=== PATIENT | female | born 1945 | race Caucasian/White ===

== ENCOUNTER → 2016-12-12 | Outpatient (CLI) | payer MEDICARE | END | disposition home or self-care (01) | LOC: LABPAT 10:55 | PROVIDERS: ATTEND Orthopaedic Surgery | DX: Z01.818 Encounter for other preprocedural examination (principal); A49.02 Methicillin resistant Staphylococcus aureus infection, unspecified site | CPT/HCPCS: 87070 ==

== ENCOUNTER 2017-01-17 06:29 | Inpatient (IN) | payer MEDICARE ==
[2017-01-10 13:34] VITALS: BMI 30.5
--- NOTE | 2017-01-16 11:34 | HP ---
DATE OF ADMISSION: CHIEF COMPLAINT: Left knee pain. HISTORY OF PRESENT ILLNESS: The patient is a 71-year-old retired female who presents with progressive left knee pain secondary to osteoarthrosis despite extensive conservative measures. She has tried previous medications and injections with only partial temporary relief. She notes she is significantly limited because of pain. PAST MEDICAL HISTORY: Significant for arthritis, hypertension, hypercholesterolemia. PAST SURGICAL HISTORY: Significant for bilateral total hip arthroplasty, breast reduction, cholecystectomy and tonsillectomy. CURRENT MEDICATIONS: 1. Ibuprofen. 2. Lipitor. 3. Lotrel. She notes allergies to SULFA. FAMILY HISTORY: Significant for heart disease, stroke and cancer. SOCIAL HISTORY: Significant for social alcohol use. A 16-point review of systems otherwise reviewed and is noncontributory. On examination, the patient is approximately 5 foot 4, 180 pounds of endomorphic habitus. HEENT exam is nonfocal. Neck is supple. She has painless passive motion of her left hip. Straight leg raise is negative. Active motion left knee -10 to 120 degrees of flexion. She has a mild effusion. She is tender about the medial joint line. Collaterals are stable, Jose is negative, Audrey's is equivocal. She has genu varum alignment. Her distal neurovascular exam appears be intact in the left lower extremity. Weight-bearing, notch, lateral, and merchant views of the left knee obtained in the office show severe medial compartment narrowing. IMPRESSION: 1. Left knee severe medial compartment osteoarthrosis. 2. Increased body mass index. RECOMMENDATION: I talked to the patient at length regarding her treatment options. At this point, she is quite symptomatic because of pain related to her osteoarthrosis. After thorough discussion, she opts to proceed with surgery. We will plan to proceed with left total knee arthroplasty. Risks and benefits are discussed at length in layman's terms. We will institute DVT prophylaxis postoperatively. Patient underwent preoperative medical evaluation by Dr. Gooden.
[~2017-01-17 06:29] MED LIST: ACETAMINOPHEN TAB 500 MG TAB PO ONE; DEXAMETHASONE SOD PHOSPHATE 10 MG/ML 1 ML VIAL IV ONE; MELOXICAM 7.5 MG TAB PO ONE; MIDAZOLAM 2 MG/2 ML VIAL IV PRN; ONDANSETRON 4 MG/2 ML VIAL IVP ONE; TRANEXAMIC ACID 1,000 MG in SODIUM CHLORIDE 0.9% 100 ML IVPB ONE; ceFAZolin 2 GM in SODIUM CHLORIDE 0.9% 100 ML IVPB ONE
[2017-01-17] MEDS: LACTATED RINGERS 1,000 ML IV SCH ×2 (07:11→20:18)
[2017-01-17] MEDS ORDERED: LIDOCAINE 1% 20 ML VIAL (10MG/ML) FOR IV START INTRADERMA ONE (07:12)
[2017-01-17] MEDS ORDERED: MIDAZOLAM 2 MG/2 ML VIAL ONE (08:10)
[2017-01-17] MEDS ORDERED: fentaNYL (PF) 50 MCG/ML 2 ML AMP ONE (08:10)
[2017-01-17] MEDS ORDERED: PROPOFOL 10 MG/ML 20 ML VIAL IV ONE (08:10)
[2017-01-17] MEDS ORDERED: LIDOCAINE 1% INJ 10MG/ML (20 ML MDV) ONE (08:10)
[2017-01-17] MEDS ORDERED: TRANEXAMIC ACID 1,000 MG/10 ML VIAL ONE (08:10)
[2017-01-17] MEDS ORDERED: SODIUM CHLORIDE 0.9% 100 ML BAG ONE (08:10)
[2017-01-17] MEDS ORDERED: ROPIVACAINE 246.25 MG, EPINEPHrine 0.5 MG, KETOROLAC 30 MG, cloNIDine HCL/PF 80 MCG, WA... MISCELLANE ONE ×5 (08:49)
[2017-01-17] MEDS ORDERED: ROPIVACAINE 1,100 MG, SODIUM CHLORIDE 0.9% 330 ML MISCELLANE PRN ×2 (10:03)
--- NOTE | 2017-01-17 10:04 | P.ONQ ---
Anesthesiology Proc Note - PNB - Peripheral Nerve Block Performed Left Adductor Canal Infusion Time Out Performed: Yes Procedure Start Time: 07:41 Procedure Stop Time: 07:53 Indication: Acute Post-Operative Pain, Requested by physician Sedation Type: Awake Preparation: Sterile Dressing Position: Supine Needle Types: On-Q Needle Size: 100mm (4") Needle Gauge: 21 Technique: Ultrasound Injectate: 0.5% Ropivacaine (see comment for volume) (ropi .5% 25cc) Pain Paresthesia on Injection Noted: No Resistance on Injection: Normal Events: Uneventful and Well Tolerated
[2017-01-17] MEDS ORDERED: ROPIVACAINE 5 MG/ML 30 ML VIAL MISCELLANE ONE (10:31)
--- NOTE | 2017-01-17 10:32 | P.OP ---
Date of Procedure: 01/17/17 Preoperative Diagnosis: Left knee severe tricompartmental osteoarthrosis Postoperative Diagnosis: Same Procedure(s) Performed: Left total knee odfnpqfipqau-juykfueq-boqwngkr retaining Implants: Depuy Attune size 5 cemented femoral component, size 4 cemented tibial component , 9 mm articular surface, 35 mm cemented patellar component. This is a cruciate retaining implant. Anesthesia: regional, local, spinal Surgeon: Tereso Burris Estimated Blood Loss (ml): 50 Pathology: other (Bone fragments) Condition: stable Disposition: PACU Indications for Procedure: The patient is a 71-year-old female who presents with progressive left knee pain secondary to osteoarthrosis despite conservative measures. A discussion of the risks and benefits of operative intervention versus continued conservative measures was made with patient. She opted to proceed with surgery. Operative risks to include infection, neurovascular injury, development of blood clots, possible component loosening, possible component failure and need for subsequent procedures was discussed. Informed consent was obtained. Operative Findings: As below Description of Procedure: The patient was brought to the operating room, and after induction of spinal anesthesia the left lower extremity was prepped and draped in a normal fashion. The limb was elevated to facilitate exsanguination. The tourniquet was inflated to 270 mmHg. A longitudinal incision extending 3 finger breaths above the superior pole of patella extending to the medial aspect the tibial tubercle was then made. The skin and subcutaneous tissues were divided sharply. Electrocautery was used for hemostasis. A medial parapatellar arthrotomy was performed. The medial soft tissues to include the superficial and deep portions of the medial collateral ligament as well as the medial hamstring tendons were elevated subperiosteally. The patella was everted and the knee flexed. The anterior cruciate ligament was sacrificed. A portion of the retropatellar fat pad was excised sharply. Blunt retractors were placed. A starting hole was made in the distal femur 1 cm anterior to the posterior cruciate ligament origin. An intramedullary guide was gently inserted planning on 5 valgus distal cut with 9 mm distal resection. The cutting block was pinned in place. The distal cut was made. The posterior referencing sizing guide was utilized. 3 of external rotation was built into the system and verified off the trans-epicondylar axis and the posterior condyles. The femur sized most appropriate size 5. The cutting block was pinned in place. The anterior, posterior, and chamfer cuts were then made. The bone fragments were removed. The slot guide was placed in the slot cut was made with the reciprocating saw. The trial size 5 femoral component was placed and was fully seated. There is good anterior to posterior medial to lateral fit. The distal peg holes were drilled. The trial component was then removed. Attention was then paid towards preparing the proximal tibia. An extra medullary guide was utilized in line with the tibial shaft and second metatarsal distally. I planned on 7 posterior slope. I planned on 2 mm resection from the medial compartment. The cutting block was pinned in place. The posterior cruciate ligament was protected with a retractor. The proximal tibial cut was made in the bone removed in one fragment. The flexion and extension gaps were checked and felt to be tight therefore an additional 2 mm was resected with the cutting block. The remnants of the medial and lateral menisci were excised the capsule junction with electrocautery. The trial femoral and size 4 tibial component were placed along with a 9 mm articular surface. The knee was put in full extension and flexion and had good stability with varus and valgus stress. After several flexion and extension cycles, the tibial rotation was marked with electrocautery in line with the medial one third of the tibial tubercle. Attention was then paid towards preparing the patella. A patella reamer was utilized taking that 14 mm of bone stock. A good flush cut was made. The patella sized most appropriately 35 mm per the peg holes were drilled. The trial components placed. The knee was taken through range of motion. I had good patellofemoral tracking with no hands technique. The trial components were then removed. The tibia was prepared in the appropriate rotation with appropriate drill and keel punch. The posterior osteophytes of the distal femur were carefully removed with curved osteotome. The flexion and extension gaps were checked and felt to be symmetric. The posterior soft tissues were injected with ropivacaine. The bony surfaces were prepared with pulsatile lavage and dried. The tibial component was then cemented in placed and was fully seated. Excess cement was removed. The femoral component was cemented in placed and was fully seated. Excess cement was removed. The trial 9 mm articular surface was placed. The patella component cemented in placed and was fully seated. After the cement had sufficiently hardened, the knee was again taken through range of motion. I was able to obtain full flexion and extension with good stability with varus and valgus stress. The trial component was then removed. The final 9 mm articular surface was placed. This was fully seated. Care taken to avoid any soft tissue interposition. Pulsatile lavage was again utilized. The medial parapatellar arthrotomy was closed with #2 Ethibond suture. A deep drain was placed exiting laterally. The tourniquet was deflated with approximately 70 minutes total tourniquet time. The subcu tissues were reapproximated interrupted 2-0 Vicryl sutures. The skin was reapproximated with 3-0 subcuticular strata fix suture. Dermabond was placed. A sterile dressing was applied. The patient was then awoken from sedation and transferred to the recovery room in good condition. Blood loss was estimated 50 mL. No complications were incurred. Sponge and needle counts were correct at the end the case.
[2017-01-17] MEDS ORDERED: ONDANSETRON 4 MG/2 ML VIAL IVP PRN (10:33)
[2017-01-17] MEDS ORDERED: NALOXONE 0.4 MG/ML 1 ML VIAL IV PRN (10:33)
[2017-01-17] MEDS ORDERED: HYDROcodone/APAP 5-325MG 1 EACH TAB PO PRN (10:33)
--- NOTE | 2017-01-17 10:58 | XR ---
EXAMINATION TYPE: XR knee limited LT DATE OF EXAM: 01/17/2017 10:49 AM COMPARISON: NONE HISTORY: Postop evaluation TECHNIQUE: 2 view left knee FINDINGS: Left knee prosthesis has been placed. No acute fractures evident. Drainage catheter is pres ent. Surgical changes are evident. IMPRESSION: 1. No acute fractures post knee replacement.
[2017-01-17] MEDS: HYDROmorphone 1 MG/ML 1 ML SYRINGE IVP PRN ×4 (11:09→12:03)
[2017-01-17] MEDS ORDERED: LACTATED RINGERS 1,000 ML IV ONE (11:24)
[2017-01-17] MEDS ORDERED: cloNIDine HCL 0.1 MG TAB PO PRN (15:55)
[2017-01-17] MEDS: ceFAZolin 2 GM in SODIUM CHLORIDE 0.9% 100 ML IVPB SCH (16:36)
[2017-01-17] MEDS: amLODIPine 10 MG TAB PO SCH (16:36)
--- NOTE | 2017-01-17 18:29 | CONS ---
DATE OF CONSULTATION: 01/17/2017 REASON FOR CONSULTATION: Advice regarding hypertension, hyperlipidemia, requested by Dr. Burris. HISTORY OF PRESENT ILLNESS: This 71-year-old woman with a past medical history of hypertension, hyperlipidemia, DJD, history of fall and bruising, history of anxiety, being followed by Dr. Gooden in the outpatient setting, was admitted for left knee arthroplasty by Dr. Burris. There is no history of any fever, rigor, or chills. No history of any headache, loss of consciousness. No history of nausea, diarrhea at this time. PAST MEDICAL HISTORY: 1. History of hypertension. 2. Hyperlipidemia. 3. History of DJD. 4. History of bruises. 5. History of adenoidectomy. 6. Breast surgery. 7. History of anxiety. Medications prior to admission include: 1. Norvasc 10 mg each morning. 2. [place]-3 fatty acids 1 p.o. daily. 3. Centrum 1 p.o. daily. 4. Vitamin D3 2000 units daily. 5. Lipitor 20 mg daily. 6. Ecotrin 81 mg. 7. Tylenol 650 q.6 p.r.n. ALLERGIES: ADHESIVE TAPE and SULFA. FAMILY HISTORY: History of lung cancer in the family. SOCIAL HISTORY: No history of smoking. No history of alcohol intake. REVIEW OF SYSTEMS: ENT: Diminished hearing. Diminished vision. CARDIOVASCULAR SYSTEM: No angina, palpitations. RESPIRATORY SYSTEM: No cough, hemoptysis. GI: No nausea, vomiting. : No dysuria. NERVOUS SYSTEM: No numbness or weakness. ALLERGY/IMMUNOLOGY: No asthma, hayfever. MUSCULOSKELETAL: As mentioned earlier. HEMATOLOGY/ONCOLOGY: No history of anemia. ENDOCRINE: No history of diabetes, hypothyroidism. CONSTITUTIONAL: As mentioned earlier. MUSCULOSKELETAL: As mentioned earlier. DERMATOLOGY: Negative. RHEUMATOLOGY: Negative. PSYCHIATRY: As mentioned earlier. PHYSICAL EXAMINATION: Patient is alert and oriented x3. Pulse is 80, blood pressure 154/72, respiration 16, temperature normal, pulse ox 91% on 2 L. HEENT: Conjunctivae normal. Oral mucosa moist. NECK: No jugular venous distention. No carotid bruit. No lymph node enlargement. CARDIOVASCULAR: S1, S2 muffled. No S3. No S4. RESPIRATORY: Breath sounds diminished at the bases. No rhonchi. No crackles. ABDOMEN: Soft, non-tender. LEGS: Status post knee arthroplasty. NERVOUS SYSTEM: Higher functions as mentioned earlier. Moves all 4 limbs. Cranial nerves 2-12 grossly intact. No focal motor or sensory deficit. LYMPHATICS: No lymph node palpable in neck, axillae or groin. SKIN: No ulcer, rash, bleeding. JOINTS: No active deforming arthropathy. Labs are not available. ASSESSMENT: 1. Status post left total knee arthroplasty. 2. Hypertension. 3. Hyperlipidemia. 4. History of degenerative joint disease. 5. History of adenoidectomy. 6. History of breast surgery. 7. History of anxiety. 8. FULL CODE. RECOMMENDATIONS AND DISCUSSION: In this 71-year-old woman who presented with multiple complex medical issues, we will monitor the patient closely, continue the current medications, continue with symptomatic treatment. I recommend resuming the home medications. Closely monitor. Otherwise, DVT prophylaxis, incentive spirometry. Will follow this patient closely with you. Patient may be asked to follow up with Dr. Gooden closely after discharge. Thank you, Dr. Burris, for letting us participate in the care of this patient.
[2017-01-18] MEDS: ceFAZolin 2 GM in SODIUM CHLORIDE 0.9% 100 ML IVPB SCH (00:23)
[2017-01-18] MEDS: HYDROcodone/APAP 5-325MG 1 EACH TAB PO PRN ×2 (01:44→06:45)
[2017-01-18 07:41] LABS: Basophils % (A) 0 %; CH 32.1; CHCM 33.6; Eosinophils % (A) 0 %; HCT 32.3 % (34.0-46.0); HDW 2.36; HGB 10.8 gm/dL (11.4-16.0); Luc # (Auto) 0.18; Luc % (Auto) 2; Lymphocytes # (A) 1.5 k/uL (1.0-4.8); Lymphocytes % (A) 16 %; MCHC 33.4 g/dL (31.0-37.0); MCV 95.9 fL (80.0-100.0); Mean Platelet Volume 7.4; Monocytes # (A) 0.6 k/uL (0-1.0); Monocytes % (A) 6 %; Neutrophils # (A) 7.1 k/uL (1.3-7.7); Neutrophils % (A) 76 %; RBC 3.37 m/uL (3.80-5.40); RDW 13.9 % (11.5-15.5); WBC 9.4 k/uL (3.8-10.6); WBC (Perox) 9.63
[2017-01-18 07:59] LABS: Anion Gap 12 mmol/L; Blood Urea Nitrogen 13 mg/dL (7-17); Calcium 9.4 mg/dL (8.4-10.2); Carbon Dioxide 26 mmol/L (22-30); Chloride 105 mmol/L (98-107); Glucose 125 mg/dL (74-99); Non-African American GFR(MDRD) >60 (>60 ml/min/1.73 sqM); Potassium 3.8 mmol/L (3.5-5.1); Sodium 143 mmol/L (137-145)
[2017-01-18] MEDS: amLODIPine 10 MG TAB PO SCH (09:25)
[2017-01-18] MEDS: RIVAROXABAN 10 MG TAB PO SCH (09:25)
[2017-01-18] MEDS: ATORVASTATIN 20 MG TAB PO SCH (09:25)
[2017-01-18] MEDS: CHOLECALCIFEROL 1,000 UNIT TAB PO SCH (09:25)
[2017-01-18] MEDS: MULTIVITAMINS, THERA 1 EACH TAB PO SCH (09:26)
--- NOTE | 2017-01-18 10:41 | CDI ---
In responding to this query, please exercise your independent professional judgment. The [facility] Coding Staff and Clinical Documentation Specialists appreciate your assistance in clarifying documentation, maintaining compliance with coding guidelines, accurately documenting patients condition and capturing severity of illness. The fact that a question is asked does not imply that any particular answer is desired or expected. Communication forms are a method of clarifying documentation and are not made part of the Legal Health Record. Thank you in advance for your clarification. Last Revision, September 2015 John Braswell [address] [place] [place] [address] Documentation Clarification Form Date: 01/18/2017 10:32:00 AM From: Thais Ricks CCS, CCDS Admit Date: 01/17/2017 6:29:00 AM Patient Name: Varsha Peterson Visit Number: [id number] Discharge Date: Dr. Tereso Burris: 71 yo female, electively admitted for Left Total Knee Arthroplasty. Principal diagnosis: Left knee severe tricompartmental osteoarthrosis. Radiology findings: Left knee (postoperatively): Left knee prosthesis placed. Other Clinical Indicators: Failed outpaitient treatment & conservative measures for left knee pain secondary to osteoarthrosis with a history of arthritis. In your professional opinion, can you please clarify the specificity of the patient's osteoarthrosis by type: Post traumatic (unilateral) Primary (unilateral) Secondary (unilateral) Other Unable to determine Please document in your progress notes and discharge summary in order to capture severity of illness and risk of mortality. Include clinical findings that support your diagnosis. FYI: Press F11 to launch patient chart. Place X here if this finding has no clinical significance, is not applicable or if you are not able to provide any additional documentation. Thank You. NADYA
[2017-01-18] MEDS ORDERED: HYDROcodone/APAP 7.5-325MG 1 EACH TAB PO PRN (11:27)
--- NOTE | 2017-01-18 11:42 | P.PN ---
Progress Note - Text S: The patient has no complaints. They deny shortness of breath or chest pain. O: Afebrile, vital signs stable Homans negative Distal neurovascular status intact in the left lower extremity Incision clean, dry , and intact A/P: Postoperative day 1 status post left total knee arthroplasty Medical management DVT prophylaxis with Xarelto Discharge planning
--- NOTE | 2017-01-18 11:53 | P.PN ---
Progress Note - Text Postop day 1 status post left total knee arthroplasty, and left adductor canal castor placed for postoperative analgesia, patient currently on continuous infusion of ropivacaine 0.2% at 8 mL per hour, she is complaining of some left knee pain, for this reason I will increase the infusion to 11 mL per hour and otherwise no other issues to address, we will evaluate the patient's response to the new dose of the medication
[2017-01-18] MEDS: HYDROcodone/APAP 7.5-325MG 1 EACH TAB PO PRN ×3 (11:55→22:07)
[2017-01-18 14:09] VITALS: RESP 16
--- NOTE | 2017-01-18 19:14 | PN ---
DATE OF SERVICE: 01/18/2017 This 71-year-old woman who was admitted for left total knee arthroplasty is improving significantly. No chest pain. No palpitation. No fever. On exam, alert and oriented x3. Pulse 77, blood pressure 150/67, respiration 18, temperature 98.1, pulse ox 97% on room air. HEENT: Conjunctivae normal. NECK: No jugular venous distention. CARDIOVASCULAR SYSTEM: S1, S2 muffled. RESPIRATORY SYSTEM: Breath sounds diminished at the bases. No rhonchi. No crackles. ABDOMEN: Soft, nontender. No mass palpable. LEGS: Status post surgery. NERVOUS SYSTEM: No focal deficit. LABS: Hemoglobin 10.8. Glucose 125. ASSESSMENT: 1. Status post left total knee arthroplasty. 2. Hypertension. 3. Anemia, possibly dilutional. 4. Increased random blood sugar. 5. Hyperlipidemia. 6. History of degenerative joint disease. 7. History of adenoidectomy. 8. History of breast surgery. 9. History of anxiety. 10. FULL CODE. RECOMMENDATIONS AND DISCUSSION: I recommend to continue current medications, continue with the monitoring, symptomatic treatment. Otherwise, at this time I recommend repeat fasting glucose. Continue with the rest of the medications. Monitor blood pressure closely. Patient is on Norvasc and p.r.n. clonidine at this time. I would add a small dose of Lopressor and also fasting blood glucose. Further recommendations to follow.
[2017-01-18] MEDS: METOPROLOL TARTRATE 12.5 MG TAB PO SCH (22:03)
[2017-01-19] MEDS: HYDROcodone/APAP 7.5-325MG 1 EACH TAB PO PRN ×2 (05:58→11:10)
--- NOTE | 2017-01-19 07:32 | P.PN ---
Progress Note - Text The patient is status post left adductor canal catheter placement. The catheter was placed for postoperative pain control, status post total left arthroplasty. Ropivacaine 0.2% is infusing at 11 mLs per hour. The patient has no complaints of left lower extremity numbness or weakness. Patient's VAS score is 2-3-10. Assessment: Patient's adductor canal catheter is in place and working appropriately. Plan: continue infusion and adjust it as needed.
[2017-01-19 09:04] VITALS: BP 147/65; PULSE 76; TEMP 97.6
[2017-01-19] MEDS: METOPROLOL TARTRATE 12.5 MG TAB PO SCH (09:04)
[2017-01-19] MEDS: amLODIPine 10 MG TAB PO SCH (09:05)
[2017-01-19] MEDS: RIVAROXABAN 10 MG TAB PO SCH (09:05)
[2017-01-19] MEDS: ATORVASTATIN 20 MG TAB PO SCH (09:05)
[2017-01-19] MEDS: CHOLECALCIFEROL 1,000 UNIT TAB PO SCH (09:05)
[2017-01-19] MEDS: MULTIVITAMINS, THERA 1 EACH TAB PO SCH (09:05)
--- NOTE | 2017-01-19 12:15 | P.PN ---
Progress Note - Text S: The patient has no complaints. They deny shortness of breath or chest pain. O: Afebrile, vital signs stable Homans negative left lower extremity Distal neurovascular status intact in the left lower extremity extremity Incision clean, dry , and intact A/P: Postoperative day 2 status post left total knee arthroplasty for primary osteoarthrosis of the left knee Medical management DVT prophylaxis with Xarelto Discharge home Follow-up in 10-14 days Visiting nurse/therapy as arranged. Xarelto for 14 days
--- NOTE | 2017-01-19 12:22 | P.DS ---
Providers Date of admission: 01/17/17 06:29 Expected date of discharge: 01/19/17 Attending physician: Tereso Burris Consults: 01/17/17 10:36 Consult Physician Routine Consulting Provider: Sherrill Gooden Consult Reason/Comments: medical management Do you want consulting provider notified?: Yes Primary care physician: Sherrill Gooden [facility] Course: The patient underwent left total knee arthroplasty without complication. Postoperatively she was seen by therapy and progressed well. She had good return of bowel and bladder function. Upon discharge she was afebrile with stable vital signs. Her wound was clean dry and intact. She received Xarelto for DVT prophylaxis. Procedures: Left total knee arthroplasty for primary osteoarthrosis of the left knee Patient Condition at Discharge: Good Plan - Discharge Summary New Discharge Prescriptions: HYDROcodone/APAP 7.5-325MG [[place] 7.5-325] 1 tab PO Q4H PRN #60 tab PRN Reason: Pain/Discomfort Rivaroxaban [Xarelto] 10 mg PO DAILY #14 tab Discharge Medication List Acetaminophen Tab [Tylenol] 650 mg PO Q6H PRN 01/10/17 [History] Aspirin [Adult Low Dose Aspirin EC] 81 mg PO DAILY 01/10/17 [History] Atorvastatin [Lipitor] 20 mg PO DAILY 01/10/17 [History] Cholecalciferol [Vitamin D3] 2,000 unit PO DAILY 01/10/17 [History] Multivit-Min/FA/Lycopene/Lut [Centrum Silver Tablet] 1 tab PO DAILY 01/10/17 [ History] [place]-3 Fatty Acids/Fish Oil [Fish Oil 1,000 mg Softgel] 1 cap PO DAILY [History] amLODIPine BESYLATE [Norvasc] 10 mg PO QAM 01/10/17 [History] HYDROcodone/APAP 7.5-325MG [[place] 7.5-325] 1 tab PO Q4H PRN #60 tab 01/19/17 [Rx ] Rivaroxaban [Xarelto] 10 mg PO DAILY #14 tab 01/19/17 [Rx] Follow up Appointment(s)/Referral(s): Kamar Tavarez PAC [PHYSICIAN CHIROPRACTIC ASSISTANT] - 2 Weeks (Computers at office are done. Patient to call and schedule follow up appointment.) Activity/Diet/Wound Care/Special Instructions: [facility] - Weightbearing as tolerated with walker. Xarelto 10 mg per day 14 days. Keep incision clean and dry. Follow-up in 10-14 days. Discharge Disposition: HOME WITH HOME HEALTH SERVICES
--- NOTE | 2017-01-19 17:07 | PN ---
DATE OF SERVICE: 01/19/2017 This 71-year-old woman who was admitted after left total knee arthroplasty, improved significantly. The patient has a slightly elevated random blood sugar and fasting blood glucose. Primary physician, Dr. Gooden is following the patient closely. No chest pain. No fever. No palpitation. On exam, alert and oriented x3. Pulse 76, blood pressure 147/65, respirations 16, temperature 97.6. Pulse ox 90% on room air. HEENT: Conjunctivae normal. NECK: No jugular venous distention. CARDIOVASCULAR: S1, S2. RESPIRATORY: Breath sounds diminished in the bases. A few scattered rhonchi. No crackles. ABDOMEN: Soft, nontender. LEGS: No edema, no swelling. NERVOUS SYSTEM: No focal deficits. LABS: Glucose 135, hemoglobin is 10.8. ASSESSMENT: 1. Status post left total knee joint arthroplasty. 2. Hypertension. 3. Increased random blood sugar rule out diabetes mellitus type 2. 4. Anemia, possibly dilutional. 5. Hyperlipidemia. 6. History of degenerative joint disease. 7. History of adenoidectomy. 8. History of breast surgery. 9. History of anxiety. 10. FULL CODE. RECOMMENDATIONS AND DISCUSSION: I would recommend to continue the current medications and continue to monitor and continue with symptomatic treatment. Otherwise at this time, I would continue to monitor closely. I recommend to continue to monitor the patient closely and recommend a close follow up with Dr. Gooden regarding the elevated blood sugars and discussed with the patient and the most recent blood sugar was 135, which was in the morning.
== END 2017-01-19 15:20 | disposition home health service (06) | DRG 470 ==
LOC: EDBD → 2ORMAIN 06:29 → 3SUR 14:40
PROVIDERS: ADMIT Orthopaedic Surgery; ATTEND Orthopaedic Surgery
PROC: 0SRD0J9 Replacement of Left Knee Joint with Synthetic Substitute, Cemented, Open Approach (ICD-10-PCS; principal; 2017-01-17 08:00)
DX: M17.12 Unilateral primary osteoarthritis, left knee (principal); D64.9 Anemia, unspecified; I10 Essential (primary) hypertension; E78.5 Hyperlipidemia, unspecified; E78.00 Pure hypercholesterolemia, unspecified; Z79.899 Other long term (current) drug therapy; Z88.2 Allergy status to sulfonamides; M21.162 Varus deformity, not elsewhere classified, left knee
CPT/HCPCS: 80048; 82947; 85025; 88300

== ENCOUNTER 2024-07-15 13:10 | Emergency (ER) | payer MEDICARE, OTHER ==
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
[2024-07-15 15:26] VITALS: RESP 18; TEMP 98.4
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
[2024-07-15 16:25] VITALS: BP 160/78; PULSE 84
== END 2024-07-15 16:52 | disposition home or self-care (01) ==
LOC: EC 13:10
CPT/HCPCS: 70450; 71046; 72125; 99284